=== PATIENT | male | born 1975 | race American Indian/Alaskan Native ===

== ENCOUNTER 2017-03-20 19:17 | Emergency (ER) | payer OTHER ==
--- NOTE | 2017-03-20 20:33 | EDM.PDOC ---
ED HPI GENERAL MEDICAL PROBLEM - General Chief Complaint: Lower Extremity Injury/Pain Stated Complaint: REVISTING FROM INITIAL FALL EARLIER HURT KNEE Time Seen by Provider: 03/20/17 19:51 Source of Information: Reports: Patient History Limitations: Reports: No Limitations - History of Present Illness INITIAL COMMENTS - FREE TEXT/NARRATIVE: This is a 41-year-old male. On March 16 he was at work and he was pulling a rope to release a pipe and apparently his left leg slipped out from under him as he was pulling on the rope causing him to come to do the splits which caused him to twist his right knee and it felt like his right knee hyperextended. He also pulled a muscle in his back that seems to be better that we still somewhat stiff in his back. He comes to the ER because his right knee has been having some swelling and pain on the anterior part of that knee. She denies any left knee tenderness or pain. He comes in with his environmental health and safety intern with crutches. He denies any other acute symptoms at this time. He says the right knee bothered him seems like his gotten worse especially . He was seen in occupational medicine on Thursday when this incident first occurred. Since then special he the right knee pain as gotten worse. Right Knee Pain Score (Numeric/FACES): 7 - Related Data Allergies Allergy/AdvReac Type Severity Reaction Status Date / Time No Known Allergies Allergy Verified 03/20/17 19:52 Home Meds: Home Meds Enalapril [Vasotec] 2.5 mg PO DAILY 03/20/17 [History] Past Medical History Cardiovascular History: Reports: Hypertension Neurological History: Reports: Head Trauma - Past Surgical History Musculoskeletal Surgical History: Reports: Arthroscopic Knee Social & Family History - Tobacco Use Smoking Status *Q: Current Every Day Smoker Years of Tobacco use: 32 Packs/Tins Daily: 0.1 - Caffeine Use Caffeine Use: Reports: None - Recreational Drug Use Recreational Drug Use: No Review of Systems - Review of Systems Review Of Systems: See Below Constitutional: Reports: No Symptoms Eyes: Reports: No Symptoms Ears: Reports: No Symptoms Nose: Reports: No Symptoms Mouth/Throat: Reports: No Symptoms Respiratory: Reports: No Symptoms Cardiovascular: Reports: No Symptoms GI/Abdominal: Reports: No Symptoms Genitourinary: Reports: No Symptoms Musculoskeletal: Reports: Other (Right knee pain, back stiffness) Skin: Reports: No Symptoms Neurological: Reports: No Symptoms Psychiatric: Reports: No Symptoms ED EXAM, GENERAL - Physical Exam Exam: See Below Exam Limited By: No Limitations General Appearance: Alert, WD/WN, No Apparent Distress Eye Exam: Bilateral Eye: Normal Inspection Ears: Normal External Exam Nose: Normal Inspection Throat/Mouth: Normal Inspection, Normal Lips, Normal Voice, No Airway Compromise Head: Normocephalic Neck: Supple Respiratory/Chest: No Respiratory Distress, Lungs Clear, Normal Breath Sounds Cardiovascular: Regular Rate, Rhythm, No Murmur GI/Abdominal: Soft Back Exam: Other (Complains of some mild stiffness in his lower back, however he moves without difficulty standing and sitting with no difficulty) Extremities: Other (Right knee has a negative anterior and posterior drawer sign , stressing the collateral ligaments reveals some mild tenderness on the medial side, he has some medial joint line tenderness especially anteriorly but no lateral joint line tenderness, his patellotibial tendon is also very tender, the patella is mobile and nontender, with weight bearing on that right leg with the knee slightly bent when he pivots he has pain in the anterior medial and patellotibial tendon, there is noted to be a mild effusion of that right knee) Neurological: Alert, Oriented Psychiatric: Normal Affect, Normal Mood Skin Exam: Warm, Dry Course - Vital Signs Last Recorded V/S: Last Vital Signs Temp 97.2 F 03/20/17 19:49 Pulse 73 03/20/17 19:49 Resp 16 03/20/17 19:49 BP 142/98 H 03/20/17 19:49 Pulse Ox 97 03/20/17 19:49 - Orders/Labs/Meds Orders: Active Orders 24 hr Category Date Time Status Communication Order [RC] STAT Care 03/20/17 21:47 Ordered Knee Min 4V Rt [CR] Stat Exams 03/20/17 20:14 Taken - Radiology Interpretation Free Text/Narrative:: X-ray of the right knee does not show any acute fractures - Re-Assessments/Exams Free Text/Narrative Re-Assessment/Exam: 03/20/17 21:48 I spoke with the patient and the environmental health and safety intern regarding the x-ray results. We' ll give him Micheal wrap his right knee with a 6 inch Micheal that was fitted and dispensed by the provider from the ER. We will also provide crutches to the patient with crutch training by the nurse. Departure - Departure Time of Disposition: 21:49 Disposition: Home, Self-Care 01 Condition: Good Clinical Impression: Knee effusion, right Sprain of right knee Qualifiers: Encounter type: initial encounter Involved ligament of knee: unspecified ligament Qualified Code(s): S83.91XA - Sprain of unspecified site of right knee , initial encounter - Discharge Information Referrals: PCP,None [Primary Care Provider] - Forms: ED Department Discharge, ED Return to Work/School Form Additional Instructions: Use the crutches to protect the right knee while at work and home, take some ibuprofen, Advil, Aleve as needed for the soreness, use the Micheal wrap during the work but take it off when you're sleeping or you're right foot and ankle will swell, follow-up with your companies designated medical provider on Thursday or Thursday of this week - My Orders Last 24 Hours: My Active Orders 03/20/17 20:14 Knee Min 4V Rt [CR] Stat 03/20/17 21:47 Communication Order [RC] STAT - Assessment/Plan Last 24 Hours: My Active Orders 03/20/17 20:14 Knee Min 4V Rt [CR] Stat 03/20/17 21:47 Communication Order [RC] STAT
--- NOTE | 2017-03-21 08:00 | CR ---
Right knee: 4 views of the right knee were obtained. Comparison: No prior knee exam. Joint effusion is identified. Medial and lateral joint spaces are maintained in height. No fracture or other bony abnormality is identified. Impression: 1. Joint effusion. 2. No bony abnormality is identified on right knee exam. Diagnostic code #3
== END 2017-03-20 21:55 | disposition home or self-care (01) ==
LOC: JD.ED 19:17 → MERGE 19:17 → JD.ED 21:55
DX: S83.91XA Sprain of unspecified site of right knee, initial encounter (principal); F17.210 Nicotine dependence, cigarettes, uncomplicated; I10 Essential (primary) hypertension; Z79.899 Other long term (current) drug therapy; X50.1XXA Overexertion from prolonged static or awkward postures, initial encounter; Y99.0 Civilian activity done for income or pay
CPT/HCPCS: 73564-26-RT; 73564-RT; 99283